=== PATIENT | male | born 1960 | race Caucasian/White ===

== ENCOUNTER → 2019-02-19 | Outpatient (CLI) | payer OTHER ==
[2019-02-19 16:30] LABS: HCT 48.2 % (39.0-53.0); HGB 15.1 gm/dL (13.0-17.5); MCH 28.3 pg (25.0-35.0); MCHC 31.3 g/dL (31.0-37.0); MCV 90.4 fL (80.0-100.0); Mean Platelet Volume 8.9; Platelet Count 141 k/uL (150-450); RBC 5.33 m/uL (4.30-5.90); RDW 14.8 % (11.5-15.5); WBC 7.1 k/uL (3.8-10.6)
[2019-02-19 16:48] LABS: Anion Gap 8 mmol/L; Blood Urea Nitrogen 15 mg/dL (9-20); Carbon Dioxide 29 mmol/L (22-30); Chloride 104 mmol/L (98-107); Potassium 4.5 mmol/L (3.5-5.1); Sodium 141 mmol/L (137-145)
== END | disposition home or self-care (01) ==
LOC: LABPAT 15:23
PROVIDERS: ATTEND Internal Medicine Interventional Cardiology
DX: Z01.812 Encounter for preprocedural laboratory examination (principal); I25.10 Atherosclerotic heart disease of native coronary artery without angina pectoris
CPT/HCPCS: 80051; 82565; 84520; 85027

== ENCOUNTER 2019-02-23 10:26 | Day surgery (SDC) | payer OTHER ==
[2019-02-20 09:56] VITALS: BMI 26.6
[~2019-02-23 10:26] MED LIST: ALPRAZolam 0.25 MG TAB PO PRN; ALPRAZolam 0.5 MG TAB PO PRN; ASPIRIN 325 MG TAB PO STA; ATORVASTATIN 80 MG TAB PO STA; NITROGLYCERIN SL TABS 0.4 MG TAB SUBLINGUAL PRN; SODIUM CHLORIDE 0.9% 1,000 ML in EMPTY BAG 1 BAG IV ONE
[2019-02-23 11:03] LABS: Glucose,Whole Blood 103 mg/dL (75-99)
[2019-02-23] MEDS ORDERED: LIDOCAINE 1% INJ 10MG/ML (20 ML MDV) ONE (13:24)
[2019-02-23] MEDS ORDERED: VERAPAMIL 2.5 MG/ML 2 ML AMP ONE (13:24)
[2019-02-23] MEDS ORDERED: LIDOCAINE 1% INJ 10MG/ML (20 ML MDV) SQ ONE (13:29)
[2019-02-23] MEDS ORDERED: MIDAZOLAM (PF) 2 MG/2 ML VIAL IV ONE (13:31)
[2019-02-23] MEDS ORDERED: fentaNYL (PF) 50 MCG/ML 2 ML AMP ONE (13:33)
[2019-02-23] MEDS ORDERED: fentaNYL (PF) 50 MCG/ML 2 ML AMP IV ONE (13:34)
[2019-02-23] MEDS ORDERED: IOPAMIDOL-370 125ML BTL INJ ONE (13:40)
[2019-02-23] MEDS ORDERED: RX INFO: IV CONTRAST WAS GIVEN 1 EACH MISC MISCELLANE PRN (13:46)
[2019-02-23] MEDS ORDERED: SODIUM CHLORIDE 0.9% 1,000 ML IV SCH (14:00)
--- NOTE | 2019-02-23 15:01 | CC ---
CARDIAC CATHETERIZATION REPORT DATE OF SERVICE: 02/23/2019 PERFORMING PHYSICIAN: Florentin Dia MD, Handwriting Expert. PROCEDURE PERFORMED: Selective right and left coronary angiogram. INDICATION: This is a 58-year-old gentleman with history of coronary artery disease and prior stenting of the right coronary artery was performed at [facility] is off was required to have a heart catheterization by the FA after angioplasty and stenting of the right. APPROACH: Right common femoral artery. COMPLICATION: None LEVEL OF SEDATION: Moderate with sedation length of 11 minutes. PROCEDURE DESCRIPTION: After obtaining an informed consent, the patient was brought to the cardiac shellfish processing laborer. The right common femoral artery was cannulated using micropuncture technique, the micropuncture wire passed easily, then I placed initially 6 and 7-Nigerien sheath in the right common femoral artery. The 6-Nigerien sheath came and there was oozing from around it and because of that I had to go to subscale 2 7-Nigerien sheath. I did selective right and left coronary angiogram using JR4 and JL4 catheters. Left. Left heart catheterization was not performed. SELECTIVE CORONARY ANGIOGRAM: 1. The right coronary artery is a large caliber vessel and is a dominant vessel. The mid proximal femoral and distal RCA are stented and the stents are patent. The RCA distally bifurcates into PDA and PLV branches both appeared to be angiographically normal. 2. The left main is angiographically normal, it bifurcates into the left circumflex and left anterior descending artery. 3. The left circumflex is a large caliber vessel. It is a nondominant vessel. The proximal circumflex is angiographically normal. It gives rise into the first OM branch which is a medium caliber vessel, seems to be normal. The mid circumflex is normal and gives rise into a second OM which seems to be normal and the circumflex distally gives rise into the third OM which seems to be normal as well. The circumflex continued after that as a small to medium caliber vessel in the AV groove. 4. The proximal LAD appeared to be normal and gives rise into the first diagonal, which is a large caliber vessel with mild disease, appeared to be in 20%-30% only. The mid LAD appeared to have mild disease only and the LAD distally appeared to have mild disease only as well. CONCLUSION: 1. Patent stent in the proximal, mid and distal right coronary artery. 2. Mild disease involving the first diagonal branch of the LAD. MMODL / IJN: [id number] /
[2019-02-23 19:47] VITALS: BP 116/68; PULSE 91; RESP 16; TEMP 98.5
== END 2019-02-23 21:30 | disposition home or self-care (01) ==
LOC: CATHCVL 10:26 → 1SOBS 14:27 → CATHCVL 21:30
PROVIDERS: ATTEND Internal Medicine Interventional Cardiology
DX: I25.10 Atherosclerotic heart disease of native coronary artery without angina pectoris (principal); Z95.5 Presence of coronary angioplasty implant and graft; E11.9 Type 2 diabetes mellitus without complications; E78.5 Hyperlipidemia, unspecified; Z82.49 Family history of ischemic heart disease and other diseases of the circulatory system; Z79.84 Long term (current) use of oral hypoglycemic drugs; Z79.02 Long term (current) use of antithrombotics/antiplatelets; Z79.899 Other long term (current) drug therapy; Z79.82 Long term (current) use of aspirin
CPT/HCPCS: 93454; C1894 ×2; C1769 ×2; J2001; J3010; Q9967; J2250

== ENCOUNTER 2020-03-03 09:40 | Day surgery (SDC) | payer OTHER ==
[2020-03-01 16:22] VITALS: BMI 27.3
[~2020-03-03 09:40] MED LIST changes: -ALPRAZolam 0.25 MG TAB PO PRN; -ALPRAZolam 0.5 MG TAB PO PRN; -ASPIRIN 325 MG TAB PO STA; -ATORVASTATIN 80 MG TAB PO STA; +LACTATED RINGERS 1,000 ML IV SCH; +LIDOCAINE 1% (10MG/ML) FOR IV START INTRADERMA PRN; -NITROGLYCERIN SL TABS 0.4 MG TAB SUBLINGUAL PRN; -SODIUM CHLORIDE 0.9% 1,000 ML in EMPTY BAG 1 BAG IV ONE
[2020-03-03 10:28] VITALS: TEMP 97
[2020-03-03 10:31] LABS: Glucose,Whole Blood 78 mg/dL (75-99)
[2020-03-03] MEDS ORDERED: PROPOFOL 10 MG/ML 20 ML VIAL IV ONE (11:23)
[2020-03-03] MEDS ORDERED: LIDOCAINE 1% INJ 10MG/ML (20 ML MDV) ONE (11:23)
--- NOTE | 2020-03-03 11:40 | P.PCN ---
Date of Procedure: 03/03/20 Procedure(s) Performed: BRIEF HISTORY: Patient is a 58-year-old pleasant white male scheduled for an elective colonoscopy as a part of screening for colorectal neoplasia. PROCEDURE PERFORMED: Colonoscopy. PREOPERATIVE DIAGNOSIS: Screening for colon cancer. IV sedation per Anesthesia. PROCEDURE: After informed consent was obtained, the patient, was brought into the endoscopy unit. IV sedation was administered by Anesthesia under continuous monitoring. Digital rectal examination was normal. Initially the Olympus CF-160 flexible video colonoscope was then inserted in the rectum, gradually advanced into the cecum without any difficulty. Careful examination was performed as the scope was gradually being withdrawn. Ileocecal valve and the appendiceal orifice were visualized and appeared normal. Prep was excellent. Mucosa of the cecum, ascending colon, transverse colon, descending colon, sigmoid colon, and rectum appeared normal. Moderate left-sided diverticulosis seen. Retroflexion was performed in the rectum and no lesions were seen. The patient tolerated the procedure well. IMPRESSION: Normal-appearing colon from rectum to cecum with no evidence of colorectal neoplasia . Moderate left-sided diverticulosis. RECOMMENDATIONS: Findings of this examination were discussed with the patient as well as his family. He was advised to have a repeat screening colonoscopy in 10 years.
[2020-03-03 12:00] LABS: Glucose,Whole Blood 81 mg/dL (75-99)
[2020-03-03 12:04] VITALS: BP 113/74; PULSE 79; RESP 20
== END 2020-03-03 12:54 | disposition home or self-care (01) ==
LOC: ORWHC2ENDO 09:40
PROVIDERS: ATTEND Internal Medicine Gastroenterology
DX: Z12.11 Encounter for screening for malignant neoplasm of colon (principal); K57.30 Diverticulosis of large intestine without perforation or abscess without bleeding; I25.10 Atherosclerotic heart disease of native coronary artery without angina pectoris; I10 Essential (primary) hypertension; E11.9 Type 2 diabetes mellitus without complications; E78.5 Hyperlipidemia, unspecified; Z95.5 Presence of coronary angioplasty implant and graft; Z79.82 Long term (current) use of aspirin; Z79.84 Long term (current) use of oral hypoglycemic drugs; Z79.02 Long term (current) use of antithrombotics/antiplatelets; Z79.899 Other long term (current) drug therapy
CPT/HCPCS: J2001; J2704; G0121

== ENCOUNTER → 2024-08-07 | Day surgery (SDC) | payer OTHER ==
[2024-08-05 11:36] VITALS: BMI 26.6
[~2024-08-07] MED LIST changes: -LACTATED RINGERS 1,000 ML IV SCH; -LIDOCAINE 1% (10MG/ML) FOR IV START INTRADERMA PRN; +LIDOCAINE 1% INJ 10MG/ML (20 ML MDV) ONE; +PROPOFOL 10 MG/ML 20 ML VIAL IV ONE
[2024-08-07] MEDS: IV FLUID CONTINUATION 1,000 ML IV ONE (10:11)
[2024-08-07 10:19] VITALS: TEMP 97.1
[2024-08-07] MEDS: LACTATED RINGERS 1,000 ML IV SCH (10:30)
[2024-08-07 10:45] LABS: Glucose,Whole Blood 100 mg/dL (70-110)
--- NOTE | 2024-08-07 11:18 | P.PCN ---
Date of Procedure: 08/07/24 Procedure(s) Performed: BRIEF HISTORY: Patient is a 63-year-old, pleasant, white male was given up endoscopies upon evaluation of intermittent episodes of dysphagia to solids and liquids for the last 1 year duration. He had an upper endoscopy dilation in May 2022 and was noted to have a distal esophageal Schatzki's ring. PROCEDURE PERFORMED: Esophagogastroduodenoscopy with balloon dilation and biopsy. PREOPERATIVE DIAGNOSIS: Intermittent dysphagia to solid and liquids for the last 1 year duration. IV sedation per anesthesia. PROCEDURE: After informed consent was obtained, the patient was brought into the endoscopy unit. IV sedation was administered by Anesthesia under continuous monitoring. Initially the Olympus GIF-140 video endoscope was inserted into the mouth. Esophagus intubated without any difficulty. It was gradually advanced into the stomach and duodenum and carefully examined. The bulb and the second part of the duodenum appeared normal. The scope at this time was withdrawn to the stomach, adequately insufflated with air, and upon careful examination, mucosa of the antrum, body, cardia and the fundus appeared normal. The scope was then withdrawn into the esophagus. Hiatal hernia noted. The GE junction was located at 39 cm from the incisors. The distal esophageal Schatzki's ring identified that was dilated with 18 to 50 mm TTS balloon for 30 seconds. The esophagus appeared normal. There were no erosions or ulcerations seen, multiple biopsies were done from mid and distal esophagus to rule out eosinophilic esophagitis and the patient tolerated the procedure well. IMPRESSION: 1. Distal esophageal Schatzki's ring status post balloon dilation using 18 to 50 mm TTS balloon 2. Small hiatal hernia. RECOMMENDATIONS: The findings of this examination were discussed with the patient as well as his family. He was advised to follow-up with the biopsy res ults.. Follow-up in the office in 3 to 4 weeks. 63
[2024-08-07 11:48] VITALS: BP 103/64; PULSE 78; RESP 16
== END ==
LOC: ORWHC2ENDO 09:49
PROVIDERS: ATTEND Internal Medicine Gastroenterology
DX: K22.2 Esophageal obstruction (principal); K44.9 Diaphragmatic hernia without obstruction or gangrene; I10 Essential (primary) hypertension; I25.10 Atherosclerotic heart disease of native coronary artery without angina pectoris; K21.9 Gastro-esophageal reflux disease without esophagitis; Z95.5 Presence of coronary angioplasty implant and graft; Z79.02 Long term (current) use of antithrombotics/antiplatelets; Z79.899 Other long term (current) drug therapy; Z88.8 Allergy status to other drugs, medicaments and biological substances
CPT/HCPCS: 88305; 43239; 43249; J2003; J2704; C1726